=== PATIENT | female | born 1955 ===

== ENCOUNTER → 2019-03-26 13:46 | Outpatient (ROUT) | payer MEDICARE, MEDICAID, SELFPAY ==
[2019-03-26 13:59] LABS: Reticulocyte Count, Percent 2.4 % (1.06-2.63)
== END ==
PROVIDERS: Visit Provider Family Medicine
DX: K92.1 Melena (principal); M05.9 Rheumatoid arthritis with rheumatoid factor, unspecified
CPT/HCPCS: 85045